=== PATIENT | female | born 1990 | race African-American/Black ===

== ENCOUNTER 2021-07-26 23:42 | Emergency (ER) | payer MEDICAID, OTHER ==
[~2021-07-26] VITALS: Ht 160 cm; Wt 58.0 kg
[2021-07-27] MEDS ORDERED: FLUORESCEIN SODIUM 1MG/STRIP LEFTEYE ONE (01:00)
[2021-07-27] MEDS ORDERED: TETRACAINE 0.5% OPHTH DROPS 4ML LEFTEYE ONE (01:00)
[2021-07-27] MEDS ORDERED: IBUP-2029 MT (01:30)
[2021-07-27] MEDS ORDERED: ERYT1OIN6 LEFTEYE (01:30)
[2021-07-27] MEDS ORDERED: PEG15DRO5 LEFTEYE (01:30)
[2021-07-27 01:41] VITALS: BP 116/84
[2021-07-27] MEDS ORDERED: IBUPROFEN 800MG TABLET PO ONE (01:45)
== END 2021-07-27 01:48 | disposition home or self-care (01) ==
LOC: ER 23:42
DX: S05.02XA Injury of conjunctiva and corneal abrasion without foreign body, left eye, initial encounter (principal); X58.XXXA Exposure to other specified factors, initial encounter; Y93.89 Activity, other specified; Y92.018 Other place in single-family (private) house as the place of occurrence of the external cause
CPT/HCPCS: 99283

== ENCOUNTER 2022-05-15 20:51 | Emergency (ER) | payer MEDICAID ==
[~2022-05-15 20:51] MED LIST: ERYT1OIN6 LEFTEYE; IBUP-2029 MT; PEG15DRO14 LEFTEYE
== END 2022-05-15 22:30 | disposition left against medical advice (07) ==
LOC: ER 20:51
DX: Z53.21 Procedure and treatment not carried out due to patient leaving prior to being seen by health care provider (principal)